=== PATIENT | male | born 1935 | race Caucasian/White ===

== ENCOUNTER 2022-01-19 15:49 | Emergency (ER) | payer OTHER ==
[~2022-01-19] VITALS: Ht 182.9 cm; Wt 63.5 kg
[2022-01-19 17:27] LABS: BASOPHILS ABSOLUTE AUTO 0.04 K/mm3 (0.00-0.23); BASOPHILS PERCENT AUTO 1 % (0-2); EOSINOPHILS PERCENT AUTO 4 % (0-6); Hematocrit 35.8 % (37.0-53.0); Hemoglobin 11.8 g/dL (13.5-17.5); IMMATURE GRAN ABSOLUTE AUTO 0.02 K/mm3 (0.00-0.10); IMMATURE GRAN PERCENT AUTO 0 % (0-1); LYMPHOCYTES ABSOLUTE AUTO 1.11 K/mm3 (0.84-5.20); LYMPHOCYTES PERCENT AUTO 14 % (21-46); MONOCYTES ABSOLUTE AUTO 0.93 K/mm3 (0.16-1.47); MONOCYTES PERCENT AUTO 12 % (4-13); Mean Corpuscular HGB 30.4 pg (26.0-34.0); Mean Corpuscular Volume 92 fL (80-100); Mean Platelet Volume 9.5 fL (9.1-12.4); NEUTROPHILS ABSOLUTE AUTO 5.59 K/mm3 (1.96-9.15); NEUTROPHILS PERCENT AUTO 70 % (41-73); Platelet Count 178 K/mm3 (150-400); RDW Coefficient Variation 12.8 % (11.7-14.2); RDW Standard Deviation 43.7 fL (35.1-46.3); Red Blood Cell Count 3.88 M/mm3 (4.30-5.90); White Blood Cell Count 7.99 K/mm3 (4.00-11.30)
[2022-01-19 17:56] LABS: Albumin, Blood 3.2 g/dL (3.4-5.0); Albumin/Globulin Ratio 0.8 (0.8-1.8); Bilirubin, Total 0.8 mg/dL (0.1-1.0); Bun/Creatinine Ratio 23.3 (12.0-20.0); Calcium, Blood 8.6 mg/dL (8.5-10.1); Creatinine, Blood 1.2 mg/dL (0.60-1.20); Globulin, Blood 4.2 g/dL (2.2-4.0); Potassium, Blood 4.1 mmol/L (3.5-5.5); Total Protein, Blood 7.4 g/dL (6.4-8.2)
== END 2022-01-19 20:43 | disposition home or self-care (01) ==
LOC: ER 15:49
PROVIDERS: Student in an Organized Health Care Education/Training Program
DX: I21.4 Non-ST elevation (NSTEMI) myocardial infarction (principal); J93.9 Pneumothorax, unspecified; E46 Unspecified protein-calorie malnutrition; J84.9 Interstitial pulmonary disease, unspecified; D64.9 Anemia, unspecified; E78.5 Hyperlipidemia, unspecified; I25.10 Atherosclerotic heart disease of native coronary artery without angina pectoris; I10 Essential (primary) hypertension; G62.9 Polyneuropathy, unspecified; I48.0 Paroxysmal atrial fibrillation
CPT/HCPCS: 71045; 71250; 80053; 83880; 84484; 85025; 93005; 93010; 99285-25

== ENCOUNTER 2022-05-13 16:08 | Inpatient (IN) | payer OTHER ==
[~2022-05-13] VITALS: Ht 182.9 cm; Wt 51.4 kg
[2022-05-13 16:51] LABS: BASOPHILS ABSOLUTE AUTO 0.03 K/mm3 (0.00-0.23); BASOPHILS PERCENT AUTO 1 % (0-2); EOSINOPHILS ABSOLUTE AUTO 0.13 K/mm3 (0.00-0.68); EOSINOPHILS PERCENT AUTO 2 % (0-6); Hematocrit 34.7 % (37.0-53.0); IMMATURE GRAN ABSOLUTE AUTO 0.01 K/mm3 (0.00-0.10); IMMATURE GRAN PERCENT AUTO 0 % (0-1); LYMPHOCYTES ABSOLUTE AUTO 0.77 K/mm3 (0.84-5.20); LYMPHOCYTES PERCENT AUTO 13 % (21-46); MONOCYTES ABSOLUTE AUTO 0.63 K/mm3 (0.16-1.47); MONOCYTES PERCENT AUTO 11 % (4-13); Mean Corpuscular HGB 30.8 pg (26.0-34.0); Mean Corpuscular HGB Conc 34.6 g/dL (31.5-36.5); Mean Corpuscular Volume 89 fL (80-100); Mean Platelet Volume 10.4 fL (9.1-12.4); NEUTROPHILS ABSOLUTE AUTO 4.33 K/mm3 (1.96-9.15); NEUTROPHILS PERCENT AUTO 73 % (41-73); Platelet Count 146 K/mm3 (150-400); RDW Coefficient Variation 13.8 % (11.7-14.2); RDW Standard Deviation 44.7 fL (35.1-46.3)
[2022-05-13 16:56] LABS: Albumin, Blood 3.4 g/dL (3.4-5.0); Bilirubin, Total 1.3 mg/dL (0.1-1.0); Bun/Creatinine Ratio 23.1 (12.0-20.0); Calcium, Blood 9.2 mg/dL (8.5-10.1); Creatinine, Blood 1.3 mg/dL (0.60-1.20); Globulin, Blood 3.5 g/dL (2.2-4.0); Potassium, Blood 4.7 mmol/L (3.5-5.5); Total Protein, Blood 6.9 g/dL (6.4-8.2)
[2022-05-14 03:17] LABS: BASOPHILS ABSOLUTE AUTO 0.04 K/mm3 (0.00-0.23); BASOPHILS PERCENT AUTO 0 % (0-2); EOSINOPHILS ABSOLUTE AUTO 0.19 K/mm3 (0.00-0.68); EOSINOPHILS PERCENT AUTO 2 % (0-6); Hematocrit 36.7 % (37.0-53.0); Hemoglobin 12.3 g/dL (13.5-17.5); IMMATURE GRAN ABSOLUTE AUTO 0.04 K/mm3 (0.00-0.10); IMMATURE GRAN PERCENT AUTO 0 % (0-1); LYMPHOCYTES ABSOLUTE AUTO 1.65 K/mm3 (0.84-5.20); LYMPHOCYTES PERCENT AUTO 14 % (21-46); MONOCYTES ABSOLUTE AUTO 1.09 K/mm3 (0.16-1.47); MONOCYTES PERCENT AUTO 9 % (4-13); Mean Corpuscular HGB 30.2 pg (26.0-34.0); Mean Corpuscular HGB Conc 33.5 g/dL (31.5-36.5); Mean Corpuscular Volume 90 fL (80-100); Mean Platelet Volume 9.7 fL (9.1-12.4); NEUTROPHILS ABSOLUTE AUTO 9.04 K/mm3 (1.96-9.15); NEUTROPHILS PERCENT AUTO 75 % (41-73); Platelet Count 163 K/mm3 (150-400); RDW Coefficient Variation 13.4 % (11.7-14.2); RDW Standard Deviation 44.5 fL (35.1-46.3); Red Blood Cell Count 4.07 M/mm3 (4.30-5.90); White Blood Cell Count 12.05 K/mm3 (4.00-11.30)
[2022-05-14 03:34] LABS: International Normalized Ratio 1.11; Prothrombin Time Results 11.6 Sec (9.7-11.5)
[2022-05-14 05:37] LABS: Albumin, Blood 3.7 g/dL (3.4-5.0); Albumin/Globulin Ratio 1.2 (0.8-1.8); Bilirubin, Total 1.8 mg/dL (0.1-1.0); Bun/Creatinine Ratio 24.6 (12.0-20.0); Calcium, Blood 9.6 mg/dL (8.5-10.1); Creatinine, Blood 1.34 mg/dL (0.60-1.20); Potassium, Blood 4.2 mmol/L (3.5-5.5); Total Protein, Blood 6.7 g/dL (6.4-8.2)
--- NOTE | 2022-05-14 07:45 | NUR ---
SHIFT SUMMARY PT ARRIVED FROM ED THIS AM WITH CHEST TUBE IN PLACE FOR R SIDED PNEUMOTHORAX. DISCONNECTED FRO SUCTION. INCONTINENT AND SOILED OF URINE AND STOOL. TACHY TO 140-150'S AND HYPOTENSIVE SYSTOLIC 80 AND 90'S. UNABLE TO CONVERSE, ONLY ABLE TO SAY ONE WORD AT A TIME. PER ED REPORT, PT ALERT AND ORIENTED X4 UPON ARRIVAL TO ED. APPEARS WEAKER IN LEFT SIDE. STIFF. PT TO HAVE HEAD CT TODAY. HR DROP TO 110'S-130'S WITH LOPRESSOR PUSH. OASIS CHEST TUBE SET TO -20 SUCTION. PT FRAIL APPEARING, DIMINISHED LUNG SOUNDS ON RS, ON 4L NC. REPORT GIVEN TO ALISON LEGER
--- NOTE | 2022-05-14 07:53 | NUR ---
AM NOTE... ASSUMED CARE OF PT AT 0700, THE PT IS AWAKE WITH A FIXED GAZE TO THE RIGHT UPWARD SIDE. THE PT IS SLOW TO RESPOND AND WHEN HE DOES IT IS A SINGLE WORD "WATER." A CHEST TUBE IS PRESENT TO THE RIGHT UPPER CHEST WALL WITH A PRESSURE DRESSING AROUND THE SITE, NO CREPITUS IS NOTED ON THIS ASSESSMENT, THERE IS SANGUINEOUS FLUID IS NOTED IN THE CHEST TUBE, AT THE START OF THIS SHIFT THERE WAS NOT FLUID IN THE COLLECTION CHAMBER, NOW AT THIS TIME THERE IS >50MLS. SUCTION IS SET TO -20. THE L/S ON THE RIGHT SIDE ARE DIM T/O LEFT SIDE IS CLEAR AND DIM IN THE BASE. RR IS IN THE 20'S, THE PT IS ON 2L NC WITH O2 SATS >90%. THE PT IS VERY CACHECTIC. ABD IS VERY HARD, BT VERY HYPOACTIVE. THE PT CURRENTLY HAS AND ATTENDS IN PLACE FOR INCONT, THIS IS C/D/I. THE PT HAS A STAGE 2 PRESSURE ULCER NOTED TO THE COCCYX. THE PT IS IN AFIB IN THE 120'S-130'S WITH A STABLE BP AT THIS TIME. WILL CONTINUE TO MOINTOR.
--- NOTE | 2022-05-14 09:41 | NUR ---
Pt resting in bed with his eyes open but does not respond verbally. Pt does not track with his eyes. Spoke with Primary RN Genny and discussed case. Pt has advanced directive with wishes for no life prolonging measures in certain scenarios. Pt has listed his son Rigo and Pt's daughter Shama as healthcare representatives. Son notified and updated. Called and spoke with Pt's son Rigo and offered supportive conversation. Rigo reports he is on his way from [place] but will take some time to drive here. Rigo reports updating Pt's daughter and both are in agreement to honor his advanced directive. Rigo request updates as things change. Rigo expresses appreciation and report no new concerns at this time. Palliative Care will remain available for supportive and therapeutic visits.
--- NOTE | 2022-05-14 11:01 | NUR ---
PT UPDATE.... PT WAS TAKEN FOR A CT OF THE HEAD AND CHEST XRAY BY THIS RN ONCE BACK TO THE ROOM THIS RN NOTED THAT THERE WAS A SMALL LEAK WHEN THERE WAS NO LEAK DURING THE AM ASSESSMENT. ONCE THE PT WAS BACK IN THE ROOM DR. ALVARADO CAME TO ASSESS THE PT. THE DRESSING TO THE PT'S CHEST TUBE WAS CHANGED BY DR. ALVARADO. THE PT'S TEMP IS ALSO NOTED TO BE SLIGHTLY ELEVATED FROM THE AM ASSESSMENT AT 99.6. WILL CONTINUE TO MONITOR.
--- NOTE | 2022-05-14 14:12 | NUR ---
Arrived to Pt's room with PARTNER activated. Pt's respiratory status significantly decline and is experiencing siezures. Retrieved non rebreather per request from wet end tester Nicole. Dr Garber and Dr Young arrive. Per MDs request called and spoke with willard Sierra and provided update and condition. Engaged in therapeutic conversation regarding goals of care including considering comfort care. Willard Sierra confirms Pt's wishes would be comfort care at this time. Gentle education on comfort care philosophy with V/U made by Rigo. Rigo elects comfort care for Pt. Called and spoke with Pt's daughter Ximena who also agrees to comfort care. Pt's friends at bedside. physical therapy professor Nicole places comfort care order and Roxanol per MD. Pt given Keppra and Roxanol and appears comfortable at this time. Palliative Care will remain available for symptom management and supportive visits.
--- NOTE | 2022-05-14 14:42 | NUR ---
PT UPDATE.... AT APROX 1320 THE PT'S O2 SATS SUDDENTLY DROPPED FROM THE HIGH 90'S TO THE 50'S WITH A GOOD WAVEFORM, THIS RN ENTERED THE ROOM TO SEE THE PT HAVING SEIZURE LIKE ACTIVITY WITH LEFT SIDED FACIAL TWITCHING, HIS LEFT ARM WAS VERY STIFF AND JERKING UP AND DOWN. THE PT'S O2 WAS INCREASED TO 15 VIA NRB MASK WHICH IMPROVED HIS O2 SATS SLIGHTLY. THIS RN CALLED THE HOSPITAL PROVIDER TO INFORM THEM OF THE PT'S CONDITION, NO NEW ORDERS WERE GIVEN AT THE TIME OF THIS CALL. THIS RN ALSO UPDATED THE PULMONARY PROVIDER THOUGH THE ICU CHARGE NURSE, NEW ORDERS WERE OBTAINED TO GIVE IV ATIVAN FOR THE SEIZURE LIKE ACTIVITY, THE PT WAS GIVEN 4MG IV ATIVAN WHICH IMPROVED THE LEFT FACIAL AND LEFT ARM TWITCHING/JERKING MOTION. DURING THIS TIME GEMA THE PALLIATIVE CARE RN CALLED THE PT'S SON AND DAUGHTER, THEY BOTH AGREED TO MAKE THE PT COMFORT CARE. COMFORT CARE ORDERS WERE PLACED PER PROVIDER. WILL CONTINUE TO MONITOR.
--- NOTE | 2022-05-14 15:10 | NUR ---
Spiritual Care Referral: Palliative Care Pt. is on comfort care and is mostly un responsive. Freinds and Family are present and welcome my visit. Scripture is read and Prayers for the pt. are given. Rapport is established with freinds, and i facilitated a life review. Pt. is a man of vicente. Pts. daughter is traveling to [facility] with an ETA of apprx. 18:30. Family and friends display evidence of hope and are engaged with the life review. More Psalms, hymns are read. [place] [facility] is chosen by family who are en route. Pts. breathing is still consistant. Pt. displays evidence of hanging on till daughter arrives. Family and frineds verbalize gratitude for the spiritual care visit. Will remain available to PCU staff and Pts. family.
--- NOTE | 2022-05-14 19:32 | NUR ---
SHIFT SUMMARY.... NO CHANGE IN THE PT'S CONDITION, THE PT'S FAMILY IS AT THE BEDSIDE AWAITING THE PT'S SON MARION TO ARRIVE FROM [facility]. THE PT HAS BEEN MEDICATED PER EMAR WITH GOOD RESULTS WHEN 10MG ORAL ROXINOL WAS GIVEN. THE PT IS TO TRANSFER TO MEDICAL FLOOR, REPORT WAS GIVEN TO MASOOD CERNA RN. ALL OF THE PT'S BELONGINGS WERE PACKED TO BE SENT WITH THE PT.
--- NOTE | 2022-05-14 20:26 | NUR ---
NEW CHEST TUBE DRAINAGE SYSTEM THIS CHARGE NURSE WAS NOTIFIED THAT THE [employer] CHEST TUBE DRAINAGE SYSTEM WAS TIPPED OVER DURING THE TRANSFER TO MEDICAL FLOOR. RED DRAINAGE WAS DISPLACED INTO ALL COLUMNS. REPLACED WITH NEW DRAINAGE SYSTEM AND NOTIFIED PRIMARY RN MILLER THAT APPROX DRAINAGE WOULD BE CHARTED OF 80 MLS. NEW OASIS FUNCTIONING APPROPRIATELY TO WALL SUCTION.
--- NOTE | 2022-05-15 03:49 | NUR ---
CLAUDETTE SLEPT COMFORTABLE THROUGH THE NIGHT. DAUGHTER ALEC AND SON MARION FROM OUT OF TOWN STAYED IN ROOM OVERNIGHT. PROTECTIVE MEPILEX OVER SACRUM REMAINS INTACT. 10MG ROXYNOL GIVEN FOR COMFORT ONCE OVERNIGHT. BREATHING IS RELAXED AND REGULAR. RIGHT FOOT WITH VERY WEAK PULSE AND COLD TO TOUCH. LEFT FOOT TOASTY WARM. PATIENT REMAINS UNRESPONSIVE. CHILDREN ASKING ABOUT TAKING HIM HOME WITH HOSPICE. CURRENTLY, HE HAS A CHEST TUBE TO SUCTION DRAINING SCANT AMOUNTS OF RUSS BLOOD.
--- NOTE | 2022-05-15 12:08 | NUR ---
NURSE NOTE PATIENT MOVED FROM 327 TO 313. PATIENT WAS MOVED TO A BIGGER ROOM FOR FAMILY. PATIENTS FAMILY APPRECIATIVE. NO FURTHER NEEDS AT THIS TIME.
--- NOTE | 2022-05-15 16:41 | NUR ---
COMFORT CARE SHIFT SUMMARY PATIENT IS UNRESPONSIVE. PATIENT HAS BEEN RESTING COMFORTABLY ALL SHIFT. PATIENTS BREATHING IS EVEN AND UNLABORED. PATIENT HAS NOT NEEDED MEDICATING THIS SHIFT. TURNED AND ADJUSTED Q2. PATIENT WAS MOVED TO LARGER ROOM FOR COMFORT DUE TO FAMILY SIZE AND IS WELL APPRECIATED. WILL TURN AND MONITOR UNTIL SHIFT CHANGE
--- NOTE | 2022-05-16 17:13 | NUR ---
SHIFT SUMMARY PT REMAINS MOSTLY UNCHANGED. RESPIRATIONS EVEN AND UNLABORED. UNRESPONSIVE TO VERBAL STIMULI. GRIMACES WHEN TURNING TO REPOSITION OR CHANGE ATTENDS. MEDICATED PER EMAR. IV KEPPRA GIVEN PER EMAR. FAMILY IN EARLY AT BS AND REMAINED THRU OUT THE DAY. DENIED FURTHER NEEDS AT THIS TIME. WILL MONITOR.
--- NOTE | 2022-05-16 20:33 | NUR ---
COMFORT: PATIENT IS PREMEDICATED WITH ROXANOL 20MG PRIOR TO REPOSITIONING AND INC. CARE. PERSONAL CARE DONE. RESPIRATIONS ARE AT 15 AND EASY, NO DYSPNEA OBSERVED. IV KEPPRA ADMIN PER MAR
--- NOTE | 2022-05-16 23:15 | NUR ---
: PATIENT WAS FOUND WITH RESPIRATIONS OF 4 WITH LONG PERIODS OF APNEA. DAUGHTER JAM IS CALLED PER HER REQUEST. FAMILY IS IN ROUTE PATIENT PASSES @ 2305. MDM SR AND GUM MACHINE OPERATOR ARE AT BEDSIDE PROVIDING EMOTIONAL CARE. PIZZA HUT ASSISTANT IS MADE AWARE.
--- NOTE | 2022-05-16 23:38 | NUR ---
EMOTIONAL SUPPORT: DAUGHTER AND SON ARE AT BEDSIDE. EMOTIONAL SUPPORT IS GIVEN. HEARING AIDES ARE REMOVED. FAMILY HAS NO REQUEST FOR SPIRITUAL CARE AT THIS TIME. BELONGINGS ARE GIVEN TO FAMILY.
--- NOTE | 2022-05-17 00:57 | NUR ---
NOTIFICATION: BELONGINGS WERE GIVEN TO FAMILY. DR THOMPSON WAS NOTIFIED OF AND HOME WAS NOTIFIED. CHEST TUBE WAS ALSO REMOVED AND POST MORTEM CARE WAS GIVEN.
--- NOTE | 2022-05-17 01:16 | NUR ---
FINAL DISCHARGE: PATIENT WAS TRANSFER OFF UNIT BY HOME STAFF.
== END 2022-05-16 23:05 | DRG 199 ==
LOC: ER 16:08 → PCU 05-14 02:02 → MEDS 05-14 20:15
PROVIDERS: Student in an Organized Health Care Education/Training Program; ADMIT Internal Medicine
PROC: 0W9930Z Drainage of Right Pleural Cavity with Drainage Device, Percutaneous Approach (ICD-10-PCS; principal; 2022-05-13)
DX: J93.83 Other pneumothorax (principal); E43 Unspecified severe protein-calorie malnutrition; J96.01 Acute respiratory failure with hypoxia; I63.40 Cerebral infarction due to embolism of unspecified cerebral artery; R64 Cachexia; Z68.1 Body mass index [BMI] 19.9 or less, adult; G81.91 Hemiplegia, unspecified affecting right dominant side; J84.10 Pulmonary fibrosis, unspecified; Z51.5 Encounter for palliative care; Z66 Do not resuscitate; I25.10 Atherosclerotic heart disease of native coronary artery without angina pectoris; Z95.1 Presence of aortocoronary bypass graft; I48.0 Paroxysmal atrial fibrillation; R56.9 Unspecified convulsions; E78.5 Hyperlipidemia, unspecified; H91.93 Unspecified hearing loss, bilateral; I10 Essential (primary) hypertension; D64.9 Anemia, unspecified; D69.6 Thrombocytopenia, unspecified; I71.4 Abdominal aortic aneurysm, without rupture; G62.9 Polyneuropathy, unspecified; H81.09 Meniere's disease, unspecified ear; L89.152 Pressure ulcer of sacral region, stage 2; Z90.49 Acquired absence of other specified parts of digestive tract; Z87.891 Personal history of nicotine dependence; Z88.0 Allergy status to penicillin; Z79.82 Long term (current) use of aspirin; Z87.09 Personal history of other diseases of the respiratory system; Z95.5 Presence of coronary angioplasty implant and graft; Z79.899 Other long term (current) drug therapy; I25.2 Old myocardial infarction
CPT/HCPCS: 32551; 36415; 70450; 71045; 71046; 80053; 83880; 84484; 85025; 85610; 93005; 93010; 94760; 96374; 99285-25; A9270; J1953; J2060; J3010; J7030